=== PATIENT | female | born 1950 | race Caucasian/White ===

== ENCOUNTER → 2021-02-10 | Outpatient (CLI) | payer OTHER ==
--- NOTE | 2021-02-10 15:38 | REP ---
INDICATION: HEMATURIA, UNSPECIFIED COMPARISON: None. TECHNIQUE: Supine view of the abdomen and pelvis. FINDINGS: Bowel gas pattern is nonspecific and without obstruction or perforation. No organomegaly. Postsurgical changes in the right upper/mid abdomen noted. No abnormal calcifications. Skeletal structures intact. IMPRESSION: Nonspecific and postsurgical changes. No obvious urinary tract calcification identified. <Electronically signed by Shan Cardona > 02/10/21 [id number]
[2021-02-10 15:58] LABS: BASO % 0.3 % (0.0-1.0); EOS % 0.3 % (0.0-3.0); HEMATOCRIT 39.4 % (36.0-47.0); HEMOGLOBIN 12.8 g/dl (12.0-15.5); LYMPH # 1.4 10^3/uL (1.5-5.0); LYMPH % 18.4 % (24.0-44.0); MEAN CORPUSCULAR HEMOGLOBIN 29.2 pg (27.0-33.0); MEAN CORPUSCULAR HGB CONC 32.5 g/dl (32.0-36.5); MEAN CORPUSCULAR VOLUME 89.7 fl (80.0-96.0); MONO # 0.5 10^3/uL (0.0-0.8); MONO % 6.3 % (2.0-8.0); NEUTROPHILS # 5.7 10^3/uL (1.5-8.5); NEUTROPHILS % 74.6 % (36.0-66.0); PLATELET COUNT, AUTOMATED 306 10^3/uL (150-450); RED BLOOD COUNT 4.39 10^6/uL (4.00-5.40); WHITE BLOOD COUNT 7.6 10^3/uL (4.0-10.0)
[2021-02-10 16:32] LABS: ALBUMIN 3.8 GM/DL (3.2-5.2); ALT/SGPT 45 U/L (12-78); BLOOD UREA NITROGEN 16 MG/DL (7-18); CALCIUM LEVEL 9.3 MG/DL (8.8-10.2); CARBON DIOXIDE LEVEL 27 MEQ/L (21-32); CHLORIDE LEVEL 107 MEQ/L (98-107); CREATININE FOR GFR 0.97 MG/DL (0.55-1.30); GLOMERULAR FILTRATION RATE > 60.0 (>39); GLUCOSE, FASTING 140 MG/DL (70-100); POTASSIUM SERUM 3.7 MEQ/L (3.5-5.1); SODIUM LEVEL 140 MEQ/L (136-145); TOTAL PROTEIN 7.5 GM/DL (6.4-8.2)
== END ==
LOC: M LAB 14:23
PROVIDERS: ATTEND Physician Assistant
DX: R31.9 Hematuria, unspecified (principal); R10.32 Left lower quadrant pain

== ENCOUNTER → 2021-04-13 | Outpatient (CLI) | payer MEDICARE, BC, OTHER ==
--- NOTE | 2021-04-13 16:02 | REP ---
INDICATION: JOINT ACHE LEFT HIP. COMPARISON: None TECHNIQUE: Two views FINDINGS: There is mild hip joint space narrowing. The femoral head is spherical in shape. There is no acute fracture, dislocation, or subluxation. There is no buttressing. IMPRESSION: Mild degenerative changes <Electronically signed by Janak Vivas > 04/13/21 [id number]
== END ==
LOC: M WUC 14:18
PROVIDERS: ATTEND Internal Medicine Gastroenterology
DX: M25.50 Pain in unspecified joint (principal); K50.90 Crohn's disease, unspecified, without complications; E78.89 Other lipoprotein metabolism disorders; R14.0 Abdominal distension (gaseous); R14.1 Gas pain

== ENCOUNTER → 2022-12-06 | Outpatient (CLI) | payer MEDICARE, BC, OTHER | LOC: M RAD 08:19 | PROVIDERS: ATTEND Internal Medicine Gastroenterology | DX: R94.5 Abnormal results of liver function studies (principal); R14.0 Abdominal distension (gaseous); K50.90 Crohn's disease, unspecified, without complications; E78.2 Mixed hyperlipidemia; E28.2 Polycystic ovarian syndrome ==

== ENCOUNTER → 2024-03-18 | Outpatient (CLI) | payer MEDICARE, BC | LOC: M RAD 08:11 | PROVIDERS: ATTEND Internal Medicine | DX: K76.0 Fatty (change of) liver, not elsewhere classified (principal); K50.90 Crohn's disease, unspecified, without complications; R14.0 Abdominal distension (gaseous); N28.1 Cyst of kidney, acquired ==

== ENCOUNTER → 2025-03-01 | Outpatient (CLI) | payer MEDICARE, BC ==
[2025-03-01 13:00] LABS: PLATELET COUNT, AUTOMATED 318 10^3/uL (150-450)
[2025-03-01 13:04] LABS: CALCIUM LEVEL 9.3 MG/DL (8.3-10.6); CARBON DIOXIDE LEVEL 27.0 MMOL/L (20-31); CHLORIDE LEVEL 103.0 MMOL/L (98-107); CREATININE FOR GFR 0.74 MG/DL (0.55-1.30); GLOMERULAR FILTRATION RATE 84.9 (>39); POTASSIUM SERUM 4.0 MMOL/L (3.5-5.1); SODIUM LEVEL 140.0 MMOL/L (136-145)
== END ==
LOC: M WUC 08:04
PROVIDERS: ATTEND Urology
DX: Z01.818 Encounter for other preprocedural examination (principal); R31.0 Gross hematuria

== ENCOUNTER → 2025-03-12 | Outpatient (CLI) | payer MEDICARE, BC ==
[~2025-03-12] MED LIST: AZEL1SPR4 NARES; COLE625T PO; CYAN100017 SQ; FENO145T7 PO; FOLI1TAB11 PO; INFL10VL IV; LOSA50TA28 PO; MONT10TA97 PO; PROG1CAP8 PO; VITA100093 PO
== END ==
LOC: M EKG 13:18
PROVIDERS: ATTEND Urology
DX: Z01.818 Encounter for other preprocedural examination (principal); R31.0 Gross hematuria

== ENCOUNTER → 2025-03-17 | Outpatient (REF) | payer MEDICARE, BC ==
[2025-03-17 14:35] LABS: APPEARANCE, URINE CLEAR (CLEAR); BACTERIA, URINE AUTO NEGATIVE (NEGATIVE); BILIRUBIN, URINE AUTO NEGATIVE (NEGATIVE); BLOOD, URINE BLOOD NEGATIVE (NEGATIVE); CALCIUM OXALATE CRYSTALS SMALL; GLUCOSE, URINE (UA) AUTO NEGATIVE (NEGATIVE); KETONE, URINE AUTO NEGATIVE (NEGATIVE); LEUKOCYTE ESTERASE, URINE AUTO NEGATIVE (NEGATIVE); NITRITE, URINE AUTO NEGATIVE (NEGATIVE); PROTEIN, URINE AUTO NEGATIVE (NEGATIVE); RBC, URINE AUTO 0 /HPF (0-3); SPECIFIC GRAVITY URINE AUTO 1.010 (1.002-1.035); SQUAMOUS EPITHELIAL CELL UR AU 0 /HPF (0-6); UROBILINOGEN, URINE AUTO 0.2 mg/dL (0.0-2.0); WBC, URINE AUTO 1 /HPF (0-3)
== END ==
LOC: M SMT 12:29
PROVIDERS: ATTEND Urology
DX: Z01.818 Encounter for other preprocedural examination (principal); N39.0 Urinary tract infection, site not specified; R31.0 Gross hematuria

== ENCOUNTER 2025-03-26 07:07 | Day surgery (SDC) | payer MEDICARE, BC ==
[~2025-03-26] VITALS: Ht 167.6 cm; Wt 77.3 kg
[~2025-03-26 07:07] MED LIST changes: +LIDOCAINE 2% 100 MG/5 ML SDV (FOR ANES.) As Ordered ONE
[2025-03-26] MEDS: LR 1,000 ML IV SCH (07:45)
[2025-03-26] MEDS ORDERED: MIDAZOLAM INJ 2 MG/2 ML VIAL As Ordered ONE (07:45)
[2025-03-26] MEDS ORDERED: ONDANSETRON 4MG 2ML VIAL As Ordered ONE (07:48)
[2025-03-26] MEDS ORDERED: dexAMETHasone 4 MG/ML 1 ML VIAL As Ordered ONE (07:48)
[2025-03-26] MEDS ORDERED: ACETAMINOPHEN 1000MG/100ML IV BAG As Ordered ONE (07:49)
[2025-03-26] MEDS: ceFAZolin SOD 2 GM IV ONCE IV ONE (08:38)
[2025-03-26] MEDS: ISOVUE-300 61% 100 ML VIAL As Ordered ONE (09:11)
[2025-03-26] MEDS ORDERED: KETOROLAC 30 MG/ML 1 ML VIAL As Ordered ONE (09:17)
[2025-03-26] MEDS ORDERED: ONDANSETRON 4MG 2ML VIAL IV PRN (09:20)
[2025-03-26] MEDS ORDERED: OXYC1TAB23 PO (09:36)
[2025-03-26] MEDS ORDERED: OXYB5TAB14 PO (09:36)
[2025-03-26 10:02] VITALS: BP 143/85; TEMP 97; O2SAT 96
== END 2025-03-26 10:45 | disposition home or self-care (01) ==
LOC: M SDC 07:07
PROVIDERS: ATTEND Urology
DX: R31.0 Gross hematuria (principal); I10 Essential (primary) hypertension; K50.90 Crohn's disease, unspecified, without complications; E78.00 Pure hypercholesterolemia, unspecified; Z79.899 Other long term (current) drug therapy; Z85.828 Personal history of other malignant neoplasm of skin; Z90.49 Acquired absence of other specified parts of digestive tract; Z88.5 Allergy status to narcotic agent; Z90.710 Acquired absence of both cervix and uterus
CPT/HCPCS: 52332; 52351; 76000; C1769; C2617; J0131; J0688; J1100; J1885; J2405; J3010; Q9967

== ENCOUNTER → 2025-04-08 | Outpatient (REF) | payer MEDICARE, OTHER ==
[~2025-04-08] MED LIST changes: -LIDOCAINE 2% 100 MG/5 ML SDV (FOR ANES.) As Ordered ONE; +OXYB5TAB14 PO; +OXYC1TAB23 PO
[2025-04-08 16:57] LABS: APPEARANCE, URINE CLOUDY (CLEAR); BACTERIA, URINE AUTO NEGATIVE (NEGATIVE); BILIRUBIN, URINE AUTO NEGATIVE (NEGATIVE); BLOOD, URINE BLOOD 3+ (NEGATIVE); GLUCOSE, URINE (UA) AUTO NEGATIVE (NEGATIVE); KETONE, URINE AUTO TRACE mg/dL (NEGATIVE); LEUKOCYTE ESTERASE, URINE AUTO 2+ (NEGATIVE); MUCUS, URINE SMALL (NEGATIVE); NITRITE, URINE AUTO NEGATIVE (NEGATIVE); PROTEIN, URINE AUTO 2+ mg/dL (NEGATIVE); RBC, URINE AUTO TNTC /HPF (0-3); SPECIFIC GRAVITY URINE AUTO 1.024 (1.002-1.035); SQUAMOUS EPITHELIAL CELL UR AU 1 /HPF (0-6); UROBILINOGEN, URINE AUTO 2.0 mg/dL (0.0-2.0); WBC, URINE AUTO 148 /HPF (0-3)
[2025-04-08 17:03] LABS: IRON (FE) 73 UG/DL (50-170); PERCENT SATURATION 17.6 % (13.2-45.0)
[2025-04-08 17:04] LABS: ALT/SGPT 31 U/L (7.0-40); AST/SGOT 31 U/L (<34); C REACTIVE PROTEIN QUANTITATIV < 0.50 MG/DL (<1.0); CALCIUM LEVEL 9.3 MG/DL (8.3-10.6); CARBON DIOXIDE LEVEL 27 MMOL/L (20-31); CHLORIDE LEVEL 103 MMOL/L (98-107); CHOLESTEROL LEVEL 161 MG/DL (<200); CHOLESTEROL RISK RATIO 3.00 (<5); CREATININE FOR GFR 0.75 MG/DL (0.55-1.30); GLOMERULAR FILTRATION RATE 83.5 (>39); LDL CHOLESTEROL 74.9 MG/DL (<100); NON-HDL-C 107.5 MG/DL; POTASSIUM SERUM 3.9 MMOL/L (3.5-5.1); SODIUM LEVEL 140 MMOL/L (136-145); TRIGLYCERIDES LEVEL 163 MG/DL (<150)
[2025-04-08 17:05] LABS: TOTAL 25(OH) VITAMIN D 25.5 NG/ML (20.0-100.0)
[2025-04-08 17:06] LABS: FREE T4 1.62 NG/DL (0.89-1.76); VITAMIN B12 LEVEL 925 PG/ML (211-911)
[2025-04-08 17:21] LABS: PLATELET COUNT, AUTOMATED 374 10^3/uL (150-450)
[2025-04-08 18:27] LABS: ESTIMATED AVERAGE GLUCOSE 103.0 MG/DL (60-110)
== END ==
LOC: M SFHCADAM 11:38
PROVIDERS: ATTEND Family Medicine
DX: K50.918 Crohn's disease, unspecified, with other complication (principal); E78.1 Pure hyperglyceridemia; I10 Essential (primary) hypertension; R31.0 Gross hematuria; Z79.899 Other long term (current) drug therapy; Z11.1 Encounter for screening for respiratory tuberculosis; Z13.1 Encounter for screening for diabetes mellitus

== ENCOUNTER → 2025-04-09 | Outpatient (REF) | payer MEDICARE, BC | LOC: M SFHCADAM 09:32 | PROVIDERS: ATTEND Family Medicine | DX: Z79.899 Other long term (current) drug therapy (principal); Z11.1 Encounter for screening for respiratory tuberculosis ==